=== PATIENT | female | born 1985 | race Two or more races ===

== ENCOUNTER 2022-01-28 23:47 | Inpatient (IN) | payer OTHER ==
[~2022-01-28] VITALS: Ht 162.6 cm; Wt 70.3 kg
[2022-01-28] MEDS ORDERED: CELLCEPT500 MG PO (23:54)
[2022-01-28] MEDS ORDERED: RAYOS5 MG (23:55)
[2022-01-29] MEDS ORDERED: HYDROXYCHLOROQ200 MG PO (00:04)
== END 2022-01-31 13:51 | disposition home or self-care (01) | DRG 812 ==
LOC: ER 23:47 → SURH 01-29 09:55
PROVIDERS: ADMIT Internal Medicine; ATTEND Internal Medicine
PROC: 30233N1 Transfusion of Nonautologous Red Blood Cells into Peripheral Vein, Percutaneous Approach (ICD-10-PCS; principal; 2022-01-29)
DX: D64.89 Other specified anemias (principal); R42 Dizziness and giddiness; M32.9 Systemic lupus erythematosus, unspecified; D50.9 Iron deficiency anemia, unspecified; Z20.822 Contact with and (suspected) exposure to COVID-19

== ENCOUNTER 2024-06-12 10:59 | Emergency (ER) | payer OTHER ==
[~2024-06-12] VITALS: Ht 162.6 cm; Wt 68.0 kg
[~2024-06-12 10:59] MED LIST: CELLCEPT500 MG PO; HYDROXYCHLOROQ200 MG PO; RAYOS5 MG
[2024-06-12] MEDS ORDERED: ACETAMINOPHEN 500 MG GEL..CAP PO ONE (13:30)
[2024-06-12] MEDS ORDERED: 0.9 % SODIUM CHLORIDE 500 ML IV ONE (13:30)
[2024-06-12] MEDS ORDERED: ONDANSETRON HCL 2 MG/ML VIAL IV ONE (13:30)
[2024-06-12] MEDS ORDERED: FAMOtidine 10 MG/ML (4ML VIAL) IV ONE (13:30)
[2024-06-12 14:05] LABS: HEMATOCRIT 27.5 % (36.0-45.00); MEAN CORPUSCULAR HGB CONC 29.7 g/dl (32.0-36.0); PLATELET COUNT 217 K/uL (150-450); RED BLOOD COUNT 4.04 M/uL (4.00-6.00)
[2024-06-12 14:08] LABS: HEMOGLOBIN 8.2 g/dL (12.0-15.00); MEAN CELL VOLUME 68.1 fL (80.00-100.00); MEAN CORPUSCULAR HEMOGLOBIN 20.2 pg (27.00-32.0); RED CELL DISTRIBUTION WIDTH 20.8 % (11.5-14.5)
[2024-06-12 15:18] LABS: ALBUMIN 3.2 gm/dL (3.4-5.0); BILIRUBIN TOTAL 1.48 mg/dL (0.3-1.2); CALCIUM 8.7 mg/dL (8.5-10.1); CREATININE SERUM 0.53 mg/dL (0.55-1.02); GFR 129.8; GLOBULINA 3.7 G/DL (2.4-3.5); POTASSIUM 4.07 mEq/L (3.5-5.1); TOTAL PROTEIN 6.9 gm/dL (6.4-8.2)
[2024-06-12] MEDS ORDERED: AZITHROMYCIN 500 MG TABLET PO ONE (16:45)
[2024-06-12] MEDS ORDERED: ZITHROMAX200 MG PO (16:48)
== END 2024-06-12 17:48 | disposition home or self-care (01) ==
LOC: ER 11:01
PROVIDERS: General Practice
DX: R50.9 Fever, unspecified (principal); R51.9 Headache, unspecified; M06.8A Other specified rheumatoid arthritis, other specified site; M32.8 Other forms of systemic lupus erythematosus; Z20.822 Contact with and (suspected) exposure to COVID-19

== ENCOUNTER 2025-06-10 16:57 | Emergency (ER) | payer OTHER ==
[~2025-06-10] VITALS: Ht 162.6 cm; Wt 72.6 kg
[~2025-06-10 16:57] MED LIST changes: +ZITHROMAX200 MG PO
[2025-06-10] MEDS ORDERED: KETOROLAC TROMETHAMINE 30 MG VIAL IV ONE (18:15)
[2025-06-10] MEDS ORDERED: FAMOtidine 10 MG/ML (4ML VIAL) IV ONE (18:15)
[2025-06-10] MEDS ORDERED: 0.9 % SODIUM CHLORIDE 1,000 ML IV ONE (18:15)
[2025-06-10] MEDS ORDERED: ONDANSETRON HCL 2 MG/ML VIAL IV ONE (18:15)
[2025-06-10 19:14] LABS: BASO % 0.1 % (0.1-1.2); EOS # 0.02 (0.04-0.54); EOS % 0.3 % (0.7-7.0); LYMPH # 0.66 (1.18-3.74); LYMPH % 8.8 % (19.3-53.1); MEAN PLATELET VOLUME 9.70 fl (9.4-12.4); MONO # 0.22 (0.24-0.82); MONO % 2.9 % (4.7-12.5); NEUT # 6.52 (1.56-6.13); NEUT % 87.5 % (34.0-71.1); RED CELL DISTRIBUTION WIDTH 18.8 % (11.6-14.4)
[2025-06-10 19:40] LABS: INR 0.99
[2025-06-10 19:47] LABS: ALT/SGPT 17 U/L (12-78); AST/SGOT 20 U/L (15-37); BILIRUBIN TOTAL 1.76 mg/dL (0.3-1.2); BUN CREA RATIO 26 (7.0-25.0); CREATININE SERUM 0.54 mg/dL (0.55-1.02); GFR 126.35; GLOBULINA 4.4 G/DL (2.4-3.5); GLUCOSE FASTING 100 mg/dL (65-100); OSMOLALITY SERUM 278 MOSM/KG (275-295)
[2025-06-10 19:48] LABS: HCG QUANTITATIVE < 1 mUI/mL (1-3)
[2025-06-10 20:19] LABS: URINE APPEARANCE Turbid; URINE BILIRRUBIN Negative (NEGATIVE); URINE BLOOD Negative; URINE COLOR Dark Yellow; URINE GLUCOSE Negative (NEGATIVE); URINE KETONE Trace (NEGATIVE); URINE LEUKOCYTE Small; URINE NITRATE Negative; URINE PROTEIN 30 (NEGATIVE); URINE UROBILINOGEN 0.2 E.U./dl
[2025-06-10 20:24] LABS: URINE BACTERIA 1125.5 uL (0.0-1933); URINE EPITHELIAL CELLS 32.9 uL (0.0-38.8); URINE RBC 15.8 uL (0.0-20.8); URINE WBC 40.4 uL (0.0-23.2)
[2025-06-10 20:56] LABS: TYPE CELLS RENAL TUBULAR; URINE CAST 0.58 uL (0.0-1.40); URINE CRYSTALS MANY /HPF
== END 2025-06-11 11:32 | disposition home or self-care (01) ==
LOC: ER 16:58
PROVIDERS: General Practice
DX: D64.9 Anemia, unspecified (principal); A08.8 Other specified intestinal infections; R11.2 Nausea with vomiting, unspecified; R11.10 Vomiting, unspecified; I10 Essential (primary) hypertension; E86.0 Dehydration; K52.9 Noninfective gastroenteritis and colitis, unspecified; R10.9 Unspecified abdominal pain
CPT/HCPCS: 36415; 74177; 76700; Q9965